=== PATIENT | male | born 1985 | race African-American/Black ===

== ENCOUNTER 2025-05-22 20:44 | Emergency (ER) | payer OTHER, SELFPAY ==
[2025-05-22] MEDS ORDERED: Acetaminophen 500 MG TAB ONE (21:10)
== END 2025-05-22 21:16 | disposition home or self-care (01) ==
LOC: BURERS 20:44
DX: K04.7 Periapical abscess without sinus (principal); F17.210 Nicotine dependence, cigarettes, uncomplicated
CPT/HCPCS: 99282